=== PATIENT | male | born 1935 | race Caucasian/White ===

== ENCOUNTER 2016-07-23 17:41 | Emergency (ER) | payer OTHER ==
[~2016-07-23 17:41] MED LIST: ALBUTEROL S3 ML/VIAL NEB; ALDACTONE25 MG PO; COREG25 MG PO; ELIQUIS5 MG PO; FERROUS SULFAT325 MG PO; GLUCOPHAGE XR750 MG PO; GLUCOTROL10 MG PO; IPRATROPIU0.2 MG/1 M NEB; LANOXIN125 MCG PO; LASIX40 MG PO; LIPITOR10 MG PO; PROAIR HFA8.5 GM IH; QVAR8.7 GM IH; TEGRETOL200 MG PO; ZESTRIL20 MG PO
== END 2016-07-23 20:20 | disposition home or self-care (01) ==
LOC: ER 17:41
DX: R07.89 Other chest pain (principal); I13.0 Hypertensive heart and chronic kidney disease with heart failure and stage 1 through stage 4 chronic kidney disease, or unspecified chronic kidney disease; I50.9 Heart failure, unspecified; N18.9 Chronic kidney disease, unspecified; R60.0 Localized edema; J45.909 Unspecified asthma, uncomplicated; E11.9 Type 2 diabetes mellitus without complications; Z85.46 Personal history of malignant neoplasm of prostate; Z79.82 Long term (current) use of aspirin; Z79.84 Long term (current) use of oral hypoglycemic drugs; Z79.899 Other long term (current) drug therapy; Z88.8 Allergy status to other drugs, medicaments and biological substances
CPT/HCPCS: 36415; 96374; 96375; J1940

== ENCOUNTER 2016-08-13 09:12 | Emergency (ER) | payer OTHER | END 2016-08-13 10:24 | disposition home or self-care (01) | LOC: ER 09:12 | DX: S46.912A Strain of unspecified muscle, fascia and tendon at shoulder and upper arm level, left arm, initial encounter (principal); J45.909 Unspecified asthma, uncomplicated; I10 Essential (primary) hypertension; Z79.82 Long term (current) use of aspirin; Z79.84 Long term (current) use of oral hypoglycemic drugs; Z88.1 Allergy status to other antibiotic agents; W18.2XXA Fall in (into) shower or empty bathtub, initial encounter ==

== ENCOUNTER 2016-09-18 23:26 | Emergency (ER) | payer OTHER | END 2016-09-19 02:26 | disposition home or self-care (01) | LOC: ER 23:26 | DX: I11.0 Hypertensive heart disease with heart failure (principal); I50.9 Heart failure, unspecified; E11.9 Type 2 diabetes mellitus without complications; E78.5 Hyperlipidemia, unspecified; J44.9 Chronic obstructive pulmonary disease, unspecified; J45.909 Unspecified asthma, uncomplicated; I25.2 Old myocardial infarction; Z99.81 Dependence on supplemental oxygen; Z85.46 Personal history of malignant neoplasm of prostate; Z79.82 Long term (current) use of aspirin; Z79.84 Long term (current) use of oral hypoglycemic drugs; Z79.899 Other long term (current) drug therapy; Z88.1 Allergy status to other antibiotic agents | CPT/HCPCS: 36415; 96374; 96375; J1940 ==

== ENCOUNTER 2016-10-08 13:11 | Inpatient (IN) | payer OTHER ==
[~2016-10-08] VITALS: Ht 180.3 cm; Wt 99.5 kg
--- NOTE | 2016-10-08 14:55 | NUR ---
1438: RECEIVED REPORT FROM MEERA LUCAS RN FROM ER DEPT
--- NOTE | 2016-10-09 16:31 | NUR ---
REPORT GIVEN CLIFFORD GIL RN. PT WITH NO S/S OF DISTRESS.
--- NOTE | 2016-10-11 13:57 | NUR ---
1300 - PATIENT DISCHARGED HOME/MD ORDER. IV AND TELEMETRY REMOVED. APPTS. AND PRESCRIPTIONS GIVEN. OUT VIA WHEELCHAIR. HOME WITH VIA PRIVATE VEHICLE.
== END 2016-10-11 13:00 | disposition home or self-care (01) | DRG 291 ==
LOC: ER 13:11 → ICU 14:43 → MED 14:43 → ICU 10-09 08:33 → MED 10-09 09:30
PROVIDERS: ADMIT Internal Medicine
DX: I13.0 Hypertensive heart and chronic kidney disease with heart failure and stage 1 through stage 4 chronic kidney disease, or unspecified chronic kidney disease (principal); I50.23 Acute on chronic systolic (congestive) heart failure; N17.9 Acute kidney failure, unspecified; J96.10 Chronic respiratory failure, unspecified whether with hypoxia or hypercapnia; N18.3 Chronic kidney disease, stage 3 (moderate); E11.22 Type 2 diabetes mellitus with diabetic chronic kidney disease; Z79.4 Long term (current) use of insulin; E78.5 Hyperlipidemia, unspecified; K80.20 Calculus of gallbladder without cholecystitis without obstruction; R60.9 Edema, unspecified; G40.909 Epilepsy, unspecified, not intractable, without status epilepticus; I25.5 Ischemic cardiomyopathy; Z99.81 Dependence on supplemental oxygen; J44.9 Chronic obstructive pulmonary disease, unspecified; Z85.46 Personal history of malignant neoplasm of prostate; I25.10 Atherosclerotic heart disease of native coronary artery without angina pectoris; I25.2 Old myocardial infarction; Z95.810 Presence of automatic (implantable) cardiac defibrillator; Z90.49 Acquired absence of other specified parts of digestive tract; Z88.8 Allergy status to other drugs, medicaments and biological substances; Z79.82 Long term (current) use of aspirin; Z79.01 Long term (current) use of anticoagulants; Z79.899 Other long term (current) drug therapy; Z87.891 Personal history of nicotine dependence; Z82.5 Family history of asthma and other chronic lower respiratory diseases; Z82.49 Family history of ischemic heart disease and other diseases of the circulatory system; Z83.3 Family history of diabetes mellitus; D53.9 Nutritional anemia, unspecified; Z87.11 Personal history of peptic ulcer disease; I27.81 Cor pulmonale (chronic)
CPT/HCPCS: 36415; 93306; 97162-GP; 97165; J0456; J0696; J1940

== ENCOUNTER 2016-10-08 13:11 | Emergency (ER) | payer OTHER | END 2016-10-08 14:42 | disposition critical access hospital (66) | LOC: ER 13:11 | DX: I11.0 Hypertensive heart disease with heart failure (principal); I50.9 Heart failure, unspecified; E78.5 Hyperlipidemia, unspecified; J45.909 Unspecified asthma, uncomplicated; J44.9 Chronic obstructive pulmonary disease, unspecified; I25.2 Old myocardial infarction; Z95.0 Presence of cardiac pacemaker; Z79.82 Long term (current) use of aspirin; Z79.84 Long term (current) use of oral hypoglycemic drugs; Z79.899 Other long term (current) drug therapy; Z88.1 Allergy status to other antibiotic agents; Z95.5 Presence of coronary angioplasty implant and graft; Z87.891 Personal history of nicotine dependence | CPT/HCPCS: 36415; 96374; J1940 ==

== ENCOUNTER 2016-10-13 20:25 | Emergency (ER) | payer OTHER | END 2016-10-13 22:34 | disposition home or self-care (01) | LOC: ER 20:25 | DX: I11.0 Hypertensive heart disease with heart failure (principal); I50.9 Heart failure, unspecified; E11.9 Type 2 diabetes mellitus without complications; E78.00 Pure hypercholesterolemia, unspecified; J45.909 Unspecified asthma, uncomplicated; I25.2 Old myocardial infarction; Z95.0 Presence of cardiac pacemaker; Z79.82 Long term (current) use of aspirin; Z79.84 Long term (current) use of oral hypoglycemic drugs; Z79.899 Other long term (current) drug therapy; Z88.8 Allergy status to other drugs, medicaments and biological substances | CPT/HCPCS: 36415; 96374; J1940 ==

== ENCOUNTER 2016-11-02 14:34 | Emergency (ER) | payer OTHER | END 2016-11-02 17:59 | disposition short-term general hospital (02) | LOC: ER 14:34 | DX: I11.0 Hypertensive heart disease with heart failure (principal); I50.9 Heart failure, unspecified; E11.9 Type 2 diabetes mellitus without complications; I25.2 Old myocardial infarction; J45.909 Unspecified asthma, uncomplicated; Z79.82 Long term (current) use of aspirin; Z79.899 Other long term (current) drug therapy; Z88.1 Allergy status to other antibiotic agents; Z95.810 Presence of automatic (implantable) cardiac defibrillator; Z99.81 Dependence on supplemental oxygen | CPT/HCPCS: 36415; 51702; 96374; 96375; J1940 ==